=== PATIENT | female | born 1995 | race Caucasian/White ===

== ENCOUNTER 2021-01-28 01:23 | Inpatient (IN) | payer OTHER ==
[2021-01-28] MEDS ORDERED: Ondansetron 4 MG/2 ML SDV IVPUSH PRN ×2 (07:07→08:46)
[2021-01-28] MEDS ORDERED: Nalbuphine 10 MG/1 ML Vial IVPUSH PRN (07:07)
[2021-01-28] MEDS ORDERED: Sodium Chloride 0.9% 10 ML Syringe FLUSH PRN (07:07)
[2021-01-28] MEDS ORDERED: Oxytocin/Lactated Ringers 10 UNIT/1,000 ML BAG IV SCH ×2 (07:15)
--- NOTE | 2021-01-28 07:29 | PCM.LDHP ---
L&D History of Present Illness - General Date of Service: 01/28/21 Admit Problem/Dx: Patient Status Order with Admit Dx/Problem 01/28/21 07:07 Patient Status [ADT] Routine Admission Diagnosis/Problem Admission Diagnosis/Problem Normal in third trimester Source of Information: Patient History Limitations: Reports: No Limitations - History of Present Illness Introduction:: Patient is a 25 y/o at 40 4/7 wks presents for TOLAC. Doing well today. Some rare contractions - Related Data Allergies/Adverse Reactions: Allergies Allergy/AdvReac Type Severity Reaction Status Date / Time No Known Allergies Allergy Verified 01/28/21 07:35 Past Medical History Cardiovascular History: Reports: Other (See Below) (Gestational HTN in 2018) [employer]AL [employer]GEON History: Reports: : 2 Para: 1 LMP (Approximate): - Past Surgical History Female Surgical History: Reports: Section Social & Family History - Tobacco Use Tobacco Use Status *Q: Never Tobacco User - Alcohol Use Alcohol Use History: No - Recreational Drug Use Recreational Drug Use: No H&P Review of Systems - Review of Systems: Review Of Systems: See Below General: Reports: No Symptoms Pulmonary: Reports: No Symptoms Cardiovascular: Reports: No Symptoms Gastrointestinal: Reports: No Symptoms Genitourinary: Reports: No Symptoms Musculoskeletal: Reports: No Symptoms Psychiatric: Reports: No Symptoms Neurological: Reports: No Symptoms L&D Exam - Exam Exam: See Below - OB Specific Contraction Intensity: Irritability Movement: Active Heart Tones: Present Heart Tones per Min: 140 Heart Rate (FHR) Variability: Moderate (6-25 bpm) Presentation: Vertex - France Score France Score Cervix Position: Posterior France Score Consistency: Soft France Score Effacement: 51-70% France Score Dilation: 1-2 cm France Score Infant's Station: -3 France Score Total: 5 - Exam General: Alert, Oriented, Cooperative Lungs: Clear to Auscultation, Normal Respiratory Effort Cardiovascular: Regular Rate, Regular Rhythm GI/Abdominal Exam: Soft, Non-Tender Genitourinary: Normal external exam Back Exam: Normal Inspection Extremities: Normal Inspection Skin: Warm, Dry, Intact - Patient Data Result Diagrams: 01/28/21 07:42 - Problem List (1) Postmaturity , 40-42 weeks gestation SNOMED Code(s): 65366540607017 ICD Code: O48.0 - POST-TERM Status: Acute Current Visit: Yes (2) History of delivery SNOMED Code(s): 008910619 ICD Code: Z98.891 - HISTORY OF UTERINE SCAR FROM PREVIOUS SURGERY Status: Acute Current Visit: Yes (3) Desires (vaginal after ) trial SNOMED Code(s): 118359787, 367954000 ICD Code: O34.219 - MATERNAL CARE FOR UNSP TYPE SCAR FROM PREVIOUS DEL Status: Acute Current Visit: Yes Problem List Initiated/Reviewed/Updated: Yes Orders Last 24hrs: Active Orders 24 hr Category Date Time Status Patient Status [ADT] Routine ADT 01/28/21 07:07 Ordered Activity as Tolerated [RC] PFP Care 01/28/21 07:07 Ordered Communication Order [RC] ASDIRECTED Care 01/28/21 07:07 Ordered Communication Order [RC] ASDIRECTED Care 01/28/21 07:07 Ordered Communication Order [RC] ASDIRECTED Care 01/28/21 07:07 Ordered Heart Tones [RC] ASDIRECTED Care 01/28/21 07:07 Ordered Monitoring [RC] INTERMITTENT Care 01/28/21 07:07 Ordered Non Stress Test [RC] PER UNIT ROUTINE Care 01/28/21 07:07 Ordered Notify Provider [RC] ASDIRECTED Care 01/28/21 07:07 Ordered Notify Provider [RC] PFP Care 01/28/21 07:07 Ordered Notify Provider [RC] PRN Care 01/28/21 07:07 Ordered Peripheral IV Care [RC] . DIRECTED Care 01/28/21 07:07 Ordered Up ad Zina [RC] ASDIRECTED Care 01/28/21 07:08 Ordered Vaginal Exam [RC] ASDIRECTED Care 01/28/21 07:07 Ordered Vital Signs [RC] ASDIRECTED Care 01/28/21 07:07 Ordered Regular Diet [DIET] Diet 01/28/21 Breakfast Ordered CBC W/O DIFF,HEMOGRAM [HEME] Routine Lab 01/28/21 07:07 Ordered CORONAVIRUS COVID-19 YANELI [MOLEC] Stat Lab 01/28/21 07:10 Ordered RAPID PLASMA REAGIN,RPR [CHEM] Routine Lab 01/28/21 07:07 Ordered TYPE AND SCREEN [BBK] Routine Lab 01/28/21 07:07 Ordered Lactated Ringers [Ringers, Lactated] 1,000 ml Med 01/28/21 07:15 Ordered IV ASDIRECTED Nalbuphine [Nubain] Med 01/28/21 07:07 Ordered 10 mg IVPUSH Q2H PRN Ondansetron [Zofran] Med 01/28/21 07:07 Ordered 4 mg IVPUSH Q4H PRN Oxytocin/Lactated Ringers [Pitocin in LR 10 Units/1,000 Med 01/28/21 07:15 Ordered ML] 10 unit in 1,000 ml IV .CONTINUOUS Oxytocin/Lactated Ringers [Pitocin in LR 10 Units/1,000 Med 01/28/21 07:15 Ordered ML] 10 unit in 1,000 ml IV TITRATE Sodium Chloride 0.9% [Saline Flush] Med 01/28/21 07:07 Ordered 10 ml FLUSH ASDIRECTED PRN Electronic Heart Tones Ext w TOCO [WOMSER] Oth 01/28/21 07:07 Ordered Routine Electronic Heart Tones Internal [WOMSER] Per Unit Ot 01/28/21 07:07 Ordered Routine Peripheral IV Insertion Adult [OM.PC] Routine Oth 01/28/21 07:07 Ordered Resuscitation Status Routine Resus Stat 01/28/21 07:07 Ordered Medication Orders Oxytocin/Lactated Ringer's (Pitocin In Lr 10 Units/1,000 Ml) 10 unit in 1,000 mls @ 12 mls/hr IV TITRATE MI; Protocol Oxytocin/Lactated Ringer's (Pitocin In Lr 10 Units/1,000 Ml) 10 unit in 1,000 mls @ 500 mls/hr IV .CONTINUOUS MI Lactated Ringer's (Ringers, Lactated) 1,000 mls @ 40 mls/hr IV ASDIRECTED MI Nalbuphine HCl (Nalbuphine 10 Mg/1 Ml Vial) 10 mg IVPUSH Q2H PRN PRN Reason: Pain Ondansetron HCl (Ondansetron 4 Mg/2 Ml Sdv) 4 mg IVPUSH Q4H PRN PRN Reason: Nausea/Vomiting Sodium Chloride (Sodium Chloride 0.9% 10 Ml Syringe) 10 ml FLUSH ASDIRECTED PRN PRN Reason: Keep Vein Open Assessment/Plan Comment:: * Labs * GBS negative * Cook balloon placed. Start pitocin * Pain management per patient preference
[2021-01-28] MEDS: Lactated Ringers 1,000 ML IV SCH ×4 (08:40→21:32)
[2021-01-28] MEDS ORDERED: ePHEDrine 50 MG/ML SDV IVPUSH PRN (08:46)
[2021-01-28] MEDS ORDERED: fentaNYL 100 MCG/2 ML SDV EPIDUR PRN (08:46)
--- NOTE | 2021-01-28 08:51 | PCM.PREANE ---
Preanesthetic Assessment - Procedure Proposed Procedure: Epidural - Anesthesia/Transfusion/Family Hx Anesthesia History: Prior Anesthesia Without Reaction Family History of Anesthesia Reaction: No Transfusion History: No Prior Transfusion(s) Intubation History: Unknown - Review of Systems General: No Symptoms Pulmonary: No Symptoms Cardiovascular: No Symptoms (history of gestational HTN) Gastrointestinal: No Symptoms (GERD), Nausea Neurological: No Symptoms, Headache Other: Reports: None, Easy Bruising - Physical Assessment NPO Status Date: 01/28/21 NPO Status Time: 09:30 Vital Signs: HR: Sat: Temp: B/P: Resp: Height: 1.63 m Weight: 94.256 kg ASA Class: 3 Mental Status: Alert & Oriented x3 Airway Class: Mallampati = 2 Dentition: Reports: Normal Dentition, Colma(s), Caries Thyro-Mental Finger Breadths: 3 Mouth Opening Finger Breadths: 3 ROM/Head Extension: Full Lungs: Clear to Auscultation, Normal Respiratory Effort Cardiovascular: Regular Rate, Regular Rhythm, No Murmurs - Lab Values: Laboratory Last Values WBC 9.08 K/mm3 (3.98-10.04) 01/28/21 07:42 RBC 4.32 M/mm3 (3.98-5.22) 01/28/21 07:42 Hgb 13.3 gm/dl (11.2-15.7) 01/28/21 07:42 Hct 39.8 % (34.1-44.9) 01/28/21 07:42 MCV 92.1 fl (79.4-94.8) 01/28/21 07:42 MCH 30.8 pg (25.6-32.2) 01/28/21 07:42 MCHC 33.4 g/dl (32.2-35.5) 01/28/21 07:42 RDW Std Deviation 41.8 fL (36.4-46.3) 01/28/21 07:42 Plt Count 222 K/mm3 (182-369) 01/28/21 07:42 MPV 10.2 fl (9.4-12.3) 01/28/21 07:42 Blood Type O POSITIVE 01/28/21 07:42 Gel Antibody Screen Negative 01/28/21 07:42 Above labs reviewed and noted and within acceptable ranges to proceed with epidural if desired. 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: - Past Surgical History Female Surgical History: Reports: Section - SUBSTANCE USE Tobacco Use Status *Q: Never Tobacco User Recreational Drug Use History: No - CURRENT (IN HOUSE) MEDS Current Meds: Current Medications Ephedrine Sulfate (Ephedrine 50 Mg/Ml Sdv) 5 mg IVPUSH ASDIRECTED PRN PRN Reason: Hypotension Fentanyl (Fentanyl 100 Mcg/2 Ml Sdv) 100 mcg EPIDUR Q3H PRN PRN Reason: Pain Fentanyl/Bupivacaine HCl (Bupivacaine/Fentanyl/Ns 100 Ml Bag) 100 ml EPIDUR ASDIRECTED MI Oxytocin/Lactated Ringer's (Pitocin In Lr 10 Units/1,000 Ml) 10 unit in 1,000 mls @ 12 mls/hr IV TITRATE MI; Protocol Last Admin: 01/28/21 08:41 Dose: 2 munits/min, 12 mls/hr Documented by: Oxytocin/Lactated Ringer's (Pitocin In Lr 10 Units/1,000 Ml) 10 unit in 1,000 mls @ 500 mls/hr IV .CONTINUOUS MI Lactated Ringer's (Ringers, Lactated) 1,000 mls @ 40 mls/hr IV ASDIRECTED MI Last Admin: 01/28/21 08:40 Dose: 40 mls/hr Documented by: Miscellaneous Medication (Phenylephrine Hcl In 0.9% Nacl 1 Mg/10 Ml Syringe) 0.1 mg IVPUSH Q10M PRN PRN Reason: Hypotension Nalbuphine HCl (Nalbuphine 10 Mg/1 Ml Vial) 10 mg IVPUSH Q2H PRN PRN Reason: Pain Ondansetron HCl (Ondansetron 4 Mg/2 Ml Sdv) 4 mg IVPUSH Q4H PRN PRN Reason: Nausea/Vomiting Ondansetron HCl (Ondansetron 4 Mg/2 Ml Sdv) 4 mg IVPUSH ONETIME PRN PRN Reason: Nausea/Vomiting Sodium Chloride (Sodium Chloride 0.9% 10 Ml Syringe) 10 ml FLUSH ASDIRECTED PRN PRN Reason: Keep Vein Open
[2021-01-28] MEDS ORDERED: Bupivacaine/fentaNYL/NS 100 ML Bag EPIDUR SCH (09:00)
[2021-01-29] MEDS ORDERED: Bupivacaine 0.25% 10 ML SDV ONE
--- NOTE | 2021-01-29 01:42 | PCM.DEL ---
L & D Note - General Info Date of Service: 01/29/21 - Delivery Note Labor: Induced by Oxytocin Cervical Ripening Method: Balloon Device Delivery Outcome: Livebirth Infant Delivery Method: Spontaneous Vaginal Delivery-Single Infant Delivery Mode: Spontaneous Presentation: Left Occiput Anterior (MANDY) Nuchal Cord: Present Anesthesia Type: Epidural Amniotic Fluid Description: Clear Episiotomy Type: None Laceration: 2nd Degree, Vaginal Suture type: Vicryl Suture size: 2-0 Placenta: Intact, Spontaneous Cord: 3 Vessels Estimated Blood Loss: 250 Resuscitation Needed: Yes : Bulb Syringe, Stimulated, Warmed, [place] Used, Warmer Used Delivery Comments (Free Text/Narrative):: Patient found to be complete and began pushing. With maternal pushing effort head delivered from MANDY presentation. Nuchal cord present, but tight and so not reduced. With gentle downward pressure the shoulders and body delivered. Infant placed on maternal abdomen. Cord clamped and cut. Cord blood obtained. Placenta allowed time to separate and expelled intact. Inspection of perineum showed a left sided vaginal laceration which was repaired with a running 2-0 Vicryl - General Info Date of Service: 01/29/21 - Patient Data Vitals - Most Recent: Last Vital Signs Temp 36.8 C 01/28/21 07:07 Pulse 80 01/28/21 07:07 Resp 16 01/28/21 07:07 BP 131/89 01/28/21 07:07 Pulse Ox 100 01/28/21 07:07 Weight - Most Recent: 94.256 kg I&O - Last 24 Hours: Intake & Output 01/28/21 01/28/21 01/29/21 14:59 22:59 06:59 Intake Total 3000 Output Total 1200 Balance 3000 -1200 - Exam Urinary Catheter Total Time: 0Days 3Hours - Problem List & Annotations (1) Postmaturity , 40-42 weeks gestation SNOMED Code(s): 39109022386320 Code(s): O48.0 - POST-TERM Status: Acute Current Visit: Yes (2) History of delivery SNOMED Code(s): 762161017 Code(s): Z98.891 - HISTORY OF UTERINE SCAR FROM PREVIOUS SURGERY Status: Acute Current Visit: Yes (3) Desires (vaginal after ) trial SNOMED Code(s): 448263834, 652755989 Code(s): O34.219 - MATERNAL CARE FOR UNSP TYPE SCAR FROM PREVIOUS DEL Status: Acute Current Visit: Yes (4) , delivered, current hospitalization SNOMED Code(s): 689024437 Code(s): O34.219 - MATERNAL CARE FOR UNSP TYPE SCAR FROM PREVIOUS DEL Status: Acute Current Visit: Yes - Problem List Review Problem List Initiated/Reviewed/Updated: Yes - My Orders Last 24 Hours: My Active Orders 01/28/21 Breakfast Regular Diet [DIET] 01/28/21 07:07 Patient Status [ADT] Routine Communication Order [RC] ASDIRECTED Communication Order [RC] ASDIRECTED Communication Order [RC] ASDIRECTED Notify Provider [RC] ASDIRECTED Notify Provider [RC] PFP Notify Provider [RC] PRN Peripheral IV Care [RC] Q4HR Nalbuphine [Nubain] 10 mg IVPUSH Q2H PRN Ondansetron [Zofran] 4 mg IVPUSH Q4H PRN Sodium Chloride 0.9% [Saline Flush] 10 ml FLUSH ASDIRECTED PRN Electronic Heart Tones Ext w TOCO [WOMSER] Routine Electronic Heart Tones Internal [WOMSER] Per Unit Routine Peripheral IV Insertion Adult [OM.PC] Routine Resuscitation Status Routine 01/28/21 07:08 Up ad Zina [RC] ASDIRECTED 01/28/21 07:15 Lactated Ringers [Ringers, Lactated] 1,000 ml IV ASDIRECTED Oxytocin/Lactated Ringers [Pitocin in LR 10 Units/1,000 ML] 10 unit in 1,000 ml IV .CONTINUOUS Oxytocin/Lactated Ringers [Pitocin in LR 10 Units/1,000 ML] 10 unit in 1,000 ml IV TITRATE 01/28/21 19:52 Urinary Catheter Assessment [RC] ASDIRECTED 01/28/21 20:00 Urinary Catheter Insertion [Insert Urinary Catheter] [OM.PC] Q24H 01/29/21 01:40 Patient Status Manage Transfer [TRANSFER] Routine - Assessment Assessment:: PPD#0 - Plan Plan:: * Routine cares * Breast feeding * Discharge home in 1-2 days
[2021-01-29] MEDS ORDERED: Witch Hazel Medicated Pads 40/Jar TOP PRN (03:05)
[2021-01-29] MEDS ORDERED: Docusate Sodium 100 MG Cap PO PRN (03:05)
[2021-01-29] MEDS ORDERED: Ibuprofen 600 MG Tab PO PRN (03:05)
[2021-01-29] MEDS ORDERED: Benzocaine/Menthol 20%-0.5% Spray 78 GM Cannister TOP PRN (03:05)
[2021-01-29] MEDS ORDERED: Acetaminophen 325 MG Tab PO PRN (03:05)
[2021-01-29] MEDS ORDERED: Methylergonovine 0.2 MG/1 ML Amp ONE (04:42)
[2021-01-29] MEDS ORDERED: Methylergonovine 0.2 MG/1 ML Amp IM STA (04:54)
--- NOTE | 2021-01-29 07:30 | PCM48HPAN ---
Post Anesthesia Note - EVALUATION WITHIN 48HRS OF ANESTHETIC Vital Signs in Normal Range: Yes Patient Participated in Evaluation: Yes Respiratory Function Stable: Yes Airway Patent: Yes Cardiovascular Function Stable: Yes Hydration Status Stable: Yes Pain Control Satisfactory: Yes Nausea and Vomiting Control Satisfactory: Yes Mental Status Recovered: Yes Vital Signs: Last Vital Signs Temp 98.4 F 01/29/21 04:36 Pulse 84 01/29/21 04:36 Resp 14 01/29/21 04:36 BP 120/70 01/29/21 04:36 Pulse Ox 96 01/29/21 04:36
--- NOTE | 2021-01-30 06:58 | PCM.DCSUM1 ---
Discharge Summary - Discharge Data Discharge Date: 01/30/21 Discharge Disposition: Home, Self-Care 01 Condition: Good - Referral to Home Health Primary Care Physician: Evelyne Pickering MD - Discharge Diagnosis/Problem(s) (1) Postmaturity , 40-42 weeks gestation SNOMED Code(s): 23802490111246 ICD Code: O48.0 - POST-TERM Status: Acute (2) History of delivery SNOMED Code(s): 949938651 ICD Code: Z98.891 - HISTORY OF UTERINE SCAR FROM PREVIOUS SURGERY Status: Acute (3) Desires (vaginal after ) trial SNOMED Code(s): 902400262, 774566083 ICD Code: O34.219 - MATERNAL CARE FOR UNSP TYPE SCAR FROM PREVIOUS DEL Status: Acute (4) , delivered, current hospitalization SNOMED Code(s): 202735639 ICD Code: O34.219 - MATERNAL CARE FOR UNSP TYPE SCAR FROM PREVIOUS DEL Status: Acute - Patient Summary/Data Complications: None Consults: None Recommended Follow-up Testing/Procedures: None Hospital Course: 25 y/o at 40 4/7 who presented for elective IOL. Done with cook balloon, pitocin, and AROM. She progressed to complete dilation and underwent an uncomplicated . See delivery note. did well and was discharged home on PPD#1 - Patient Instructions Diet: Regular Diet as Tolerated Activity: As Tolerated Activity, Other: Pelvic rest for 6 weeks Driving: May Drive Today Showering/Bathing: May Shower Showering/Bathing, Other: May Bathe Notify Provider of: Fever, Increased Pain, Swelling and Redness, Drainage, Nausea and/or Vomiting - Discharge Plan *PRESCRIPTION DRUG MONITORING PROGRAM REVIEWED*: No *COPY OF PRESCRIPTION DRUG MONITORING REPORT IN PATIENT FAINA: No Home Medications: Home Meds Docusate Sodium [Colace] 100 mg PO BID PRN cap 01/30/21 [Rx] Ibuprofen [Motrin] 600 mg PO Q6H PRN tablet 01/30/21 [Rx] Patient Handouts: Care After Vaginal Delivery Referrals: Evelyne Pickering MD [Primary Care Provider] - (Approximately 1 week nurse only blood pressure checkup. [address] Pickering. Please call [facility] for your appointment. ) - Discharge Summary/Plan Comment DC Time >30 min.: No Total # of Minutes for Discharge Time: 15 - Patient Data Vitals - Most Recent: Last Vital Signs Temp 36.4 C 01/30/21 04:21 Pulse 77 01/30/21 04:21 Resp 14 01/30/21 04:21 BP 102/59 L 01/30/21 04:21 Pulse Ox 97 01/30/21 04:21 Weight - Most Recent: 94.256 kg Med Orders - Current: Current Medications Acetaminophen (Acetaminophen 325 Mg Tab) 650 mg PO Q4H PRN PRN Reason: mild pain or fever Benzocaine/Menthol (Benzocaine/Menthol 20%-0.5% [place] 78 Gm Cannister) 0 gm TOP ASDIRECTED PRN PRN Reason: Perineal Comfort Measure Last Admin: 01/29/21 04:31 Dose: 1 can Documented by: Docusate Sodium (Docusate Sodium 100 Mg Cap) 100 mg PO BID PRN PRN Reason: Constipation Ibuprofen (Ibuprofen 600 Mg Tab) 600 mg PO Q6H PRN PRN Reason: Mild pain or fever Last Admin: 01/29/21 15:35 Dose: 600 mg Documented by: Measles/Mumps/Rubella Vaccine Live (Measles, Mumps & Rubella Vaccine 0.5 Ml Sdv) 0.5 ml SUBCUT .ONCE ONE Stop: 01/30/21 07:34 Witch Andria (Witch Andria Medicated Pads 40/Jar) 1 pad TOP ASDIRECTED PRN PRN Reason: Perineal Comfort Measure Last Admin: 01/29/21 03:00 Dose: 1 tub Documented by: Discontinued Medications Bupivacaine HCl (Bupivacaine 0.25% 10 Ml Sdv) 10 ml .ROUTE .STK-MED ONE Stop: 01/29/21 00:01 Ephedrine Sulfate (Ephedrine 50 Mg/Ml Sdv) 5 mg IVPUSH ASDIRECTED PRN PRN Reason: Hypotension Fentanyl (Fentanyl 100 Mcg/2 Ml Sdv) 100 mcg EPIDUR Q3H PRN PRN Reason: Pain Last Admin: 01/28/21 19:27 Dose: 100 mcg Documented by: Fentanyl/Bupivacaine HCl (Bupivacaine/Fentanyl/Ns 100 Ml Bag) 100 ml EPIDUR ASDIRECTED MI Last Admin: 01/28/21 19:28 Dose: 100 ml Documented by: Oxytocin/Lactated Ringer's (Pitocin In Lr 10 Units/1,000 Ml) 10 unit in 1,000 mls @ 12 mls/hr IV TITRATE MI; Protocol Last Titration: 01/29/21 01:24 Dose: 166.5 munits/min, 999 mls/hr Documented by: Oxytocin/Lactated Ringer's (Pitocin In Lr 10 Units/1,000 Ml) 10 unit in 1,000 mls @ 500 mls/hr IV .CONTINUOUS MI Last Admin: 01/29/21 01:48 Dose: 999 mls/hr Documented by: Lactated Ringer's (Ringers, Lactated) 1,000 mls @ 40 mls/hr IV ASDIRECTED MI Last Admin: 01/28/21 21:32 Dose: 40 mls/hr Documented by: Methylergonovine Maleate (Methylergonovine 0.2 Mg/1 Ml Amp) 0.2 mg IM ONETIME STA Stop: 01/29/21 04:55 Last Admin: 01/29/21 04:49 Dose: 0.2 mg Documented by: Methylergonovine Maleate (Methylergonovine 0.2 Mg/1 Ml Amp) Confirm Administered Dose 0.2 mg .ROUTE .STK-MED ONE Stop: 01/29/21 04:43 Last Admin: 01/29/21 04:59 Dose: Not Given Documented by: Miscellaneous Medication (Phenylephrine Hcl In 0.9% Nacl 1 Mg/10 Ml Syringe) 0.1 mg IVPUSH Q10M PRN PRN Reason: Hypotension Nalbuphine HCl (Nalbuphine 10 Mg/1 Ml Vial) 10 mg IVPUSH Q2H PRN PRN Reason: Pain Ondansetron HCl (Ondansetron 4 Mg/2 Ml Sdv) 4 mg IVPUSH Q4H PRN PRN Reason: Nausea/Vomiting Ondansetron HCl (Ondansetron 4 Mg/2 Ml Sdv) 4 mg IVPUSH ONETIME PRN PRN Reason: Nausea/Vomiting Sodium Chloride (Sodium Chloride 0.9% 10 Ml Syringe) 10 ml FLUSH ASDIRECTED PRN PRN Reason: Keep Vein Open
[2021-01-30] MEDS ORDERED: Measles, Mumps & Rubella Vaccine 0.5 ML SDV SUBCUT ONE (07:33)
== END 2021-01-30 11:10 | disposition home or self-care (01) | DRG 807 ==
LOC: JD.OB 01:23 → OBSVTOIN 01-29 01:23
PROVIDERS: ADMIT Obstetrics & Gynecology; ATTEND Obstetrics & Gynecology
PROC: 10E0XZZ Delivery of Products of Conception, External Approach (ICD-10-PCS; principal; 2021-01-29)
PROC: 0KQM0ZZ Repair Perineum Muscle, Open Approach (ICD-10-PCS; 2021-01-29)
PROC: 10907ZC Drainage of Amniotic Fluid, Therapeutic from Products of Conception, Via Natural or Artificial Opening (ICD-10-PCS; 2021-01-29)
PROC: 3E033VJ Introduction of Other Hormone into Peripheral Vein, Percutaneous Approach (ICD-10-PCS; 2021-01-29)
PROC: 3E0R3BZ Introduction of Anesthetic Agent into Spinal Canal, Percutaneous Approach (ICD-10-PCS; 2021-01-29)
DX: O48.0 Post-term pregnancy (principal); Z37.0 Single live birth; Z3A.40 40 weeks gestation of pregnancy; O70.1 Second degree perineal laceration during delivery; O69.1XX0 Labor and delivery complicated by cord around neck, with compression, not applicable or unspecified; Z20.822 Contact with and (suspected) exposure to COVID-19
CPT/HCPCS: 01967; 36415; 51701; 51702; 59025; 59409; 85027; 86592; 86850; 86900; 86901; A9270-GY; C1726; J2210; J2590; J3010; J3490; J7120; U0002